=== PATIENT | female | born 1995 | race Hispanic/Latino ===

== ENCOUNTER 2020-06-07 15:37 | Emergency (ER) | payer MEDICAID ==
[2020-06-07] MEDS ORDERED: SODIUM CHLORIDE 0.9% 1000ML 1,000 ML IV ONE (17:03)
[2020-06-07] MEDS ORDERED: METHYLPREDNISOLONE SOD SUCC 125MG/2ML VIAL ONE (17:04)
[2020-06-07] MEDS ORDERED: ALBUTEROL INHALER 90MCG/INH IH ONE (17:04)
[2020-06-07] MEDS ORDERED: AZITHROMYCIN 500MG+NS 250ML 250 ML IV ONE (17:05)
[2020-06-07] MEDS ORDERED: KETOROLAC TROMETHAMINE 30MG/ML ONE (17:05)
[2020-06-07] MEDS ORDERED: CEFTRIAXONE SODIUM 1 GM ONE (17:05)
[2020-06-07 17:42] LABS: CREATININE 0.7 mg/dL (0.5-1.5); POTASSIUM 3.8 mmol/L (3.5-5.1)
[2020-06-07 17:46] LABS: ALBUMIN 3.6 g/dL (3.5-5.0); BILIRUBIN,TOTAL 0.8 mg/dL (0.2-1.0); TOTAL PROTEIN, SERUM 8.2 g/dL (6.0-8.3)
[2020-06-07 18:05] LABS: RAPID GROUP A STREP NEGATIVE (NEGATIVE)
[2020-06-07 18:12] LABS: BASOPHILS % (AUTO) 0.5 % (0.0-5.0); EOSINOPHILS % (AUTO) 10.4 % (0.0-8.0); HEMATOCRIT 40.8 % (36-48); MEAN CORPUSCULAR HEMOGLOBIN 27.9 pg (27.0-33.0); MEAN CORPUSCULAR HGB CONC 32.8 g/dL (32.0-36.0); MONOCYTES % (AUTO) 6.6 % (3.0-13.0); NEUTROPHILS % (AUTO) 52.4 % (40.0-77.0); PLATELET COUNT (AUTO) 229 K/uL (130-400); RED CELL DISTRIBUTION WIDTH 13.2 % (11.0-15.5); WHITE BLOOD COUNT (AUTO) 8.3 K/uL (4.8-10.8)
[2020-06-07 19:05] LABS: B-TYPE NATRIURETIC PEPTIDE 8 pg/mL (0-100)
[2020-06-07 20:03] LABS: APPEARANCE,URINE Cloudy (CLEAR); BILIRUBIN,URINE Negative (NEGATIVE); COLOR,URINE Yellow (YELLOW); GLUCOSE, URINE (UA) Negative (NEGATIVE); KETONES,URINE Negative (NEGATIVE); LEUKOCYTE ESTERASE ,URINE Trace (NEGATIVE); NITRATE,URINE Negative (NEGATIVE); OCCULT BLOOD,URINE Nonhemolyzed Trace (NEGATIVE); PROTEIN,URINE Negative (NEGATIVE); UROBILINOGEN,URINE 0.2 mg/dL (0.2-1.0)
[2020-06-07 20:05] LABS: HCG,QUAL RESULT NEGATIVE (NEGATIVE)
[2020-06-07 20:14] LABS: BACTERIA,URINE Few /HPF (None Seen); MUCUS,URINE Moderate LPF (None Seen); SQUAMOUS EPITHELIAL CELL,UR Moderate /HPF (0-2)
== END 2020-06-07 20:27 | disposition home or self-care (01) ==
LOC: EDH 15:37
DX: U07.1 COVID-19 (principal); J45.901 Unspecified asthma with (acute) exacerbation; F20.9 Schizophrenia, unspecified; Z72.0 Tobacco use
CPT/HCPCS: 36415; 71045; 80053; 81001; 81025; 83605; 83880; 84145; 85025; 87040 ×2; 87426; 87804 ×2; 87880; 93005; 96365; 96366; 96368; 96375; 99285; J0456; J0696; J1885; J2930; J7030

== ENCOUNTER 2020-07-19 07:22 | Observation (INO) | payer MEDICAID ==
[~2020-07-19] VITALS: Ht 162.6 cm; Wt 95.3 kg
[2020-07-19] MEDS ORDERED: ALBUTEROL INHALER 90MCG/INH IH ONE (08:04)
[2020-07-19] MEDS ORDERED: METHYLPREDNISOLONE SOD SUCC 125MG/2ML VIAL ONE (08:04)
[2020-07-19 08:10] LABS: BASOPHILS % (AUTO) 0.4 % (0.0-5.0); EOSINOPHILS % (AUTO) 10.2 % (0.0-8.0); HEMATOCRIT 42.4 % (36-48); LYMPHOCYTES % (AUTO) 19.5 % (21.0-51.0); MEAN CORPUSCULAR HEMOGLOBIN 28.5 pg (27.0-33.0); MONOCYTES % (AUTO) 5.4 % (3.0-13.0); NEUTROPHILS % (AUTO) 64.3 % (40.0-77.0); PLATELET COUNT (AUTO) 274 K/uL (130-400); RED BLOOD CELL COUNT(AUTO) 5.05 MIL/uL (4.00-5.50); RED CELL DISTRIBUTION WIDTH 13.7 % (11.0-15.5); WHITE BLOOD COUNT (AUTO) 12.1 K/uL (4.8-10.8)
[2020-07-19] MEDS ORDERED: MAGNESIUM 2GM PREMIX 50ML 50 ML IV ONE (08:10)
[2020-07-19 08:31] LABS: CREATININE 0.9 mg/dL (0.5-1.5); POTASSIUM 3.7 mmol/L (3.5-5.1)
[2020-07-19 08:32] LABS: B-TYPE NATRIURETIC PEPTIDE 6 pg/mL (0-100)
[2020-07-19] MEDS ORDERED: LACTULOSE 20 GM/30 ML UDCUP PO PRN (11:30)
[2020-07-19] MEDS: METHYLPREDNISOLONE SOD SUCC 125MG/2ML VIAL IV SCH ×2 (11:30→19:30)
[2020-07-19] MEDS ORDERED: ONDANSETRON HCL 4 MG/2 ML VIAL IV PRN (11:30)
[2020-07-19] MEDS ORDERED: IPRATROPIUM/ALBUTEROL SULFATE 3 ML SOLUTION IH PRN (11:30)
[2020-07-19] MEDS ORDERED: ACETAMINOPHEN 325 MG TAB PO PRN ×2 (11:30)
[2020-07-19] MEDS: ALBUTEROL INHALER 90MCG/INH IH SCH (18:00)
[2020-07-19] MEDS ORDERED: MAGNESIUM 2GM PREMIX 50ML 50 ML IV SCH ×2 (18:15)
[2020-07-19 19:27] VITALS: BP 143/75
[2020-07-19] MEDS: FAMOTIDINE 20MG TAB 20 MG TAB PO SCH (21:27)
[2020-07-19] MEDS ORDERED: BENZONATATE 100 MG CAPSULE PO ONE (22:12)
[2020-07-19] MEDS ORDERED: BENZONATATE 100 MG CAPSULE PO PRN (22:15)
[2020-07-19 23:19] VITALS: BP 114/70
[2020-07-19] MEDS ORDERED: PALI3TAB5 PO (23:45)
[2020-07-19] MEDS ORDERED: BENZTROPINE PO (23:45)
[2020-07-19] MEDS ORDERED: TRAZ-187 PO (23:45)
[2020-07-19] MEDS ORDERED: PARO7.5C2 PO (23:45)
[2020-07-20] MEDS: ALBUTEROL INHALER 90MCG/INH IH SCH ×3 (00:55→12:00)
[2020-07-20 03:06] VITALS: BP 106/52
[2020-07-20] MEDS: METHYLPREDNISOLONE SOD SUCC 125MG/2ML VIAL IV SCH ×2 (03:30→11:58)
[2020-07-20 04:34] LABS: BASOPHILS % (AUTO) 0.4 % (0.0-5.0); EOSINOPHILS % (AUTO) 1.5 % (0.0-8.0); HEMATOCRIT 40.3 % (36-48); LYMPHOCYTES % (AUTO) 21.9 % (21.0-51.0); MEAN CORPUSCULAR HGB CONC 33.3 g/dL (32.0-36.0); MEAN CORPUSCULAR VOLUME 84.3 fL (79-99); MONOCYTES % (AUTO) 9.3 % (3.0-13.0); NEUTROPHILS % (AUTO) 66.3 % (40.0-77.0); PLATELET COUNT (AUTO) 296 K/uL (130-400); RED BLOOD CELL COUNT(AUTO) 4.78 MIL/uL (4.00-5.50); RED CELL DISTRIBUTION WIDTH 13.6 % (11.0-15.5); WHITE BLOOD COUNT (AUTO) 15.2 K/uL (4.8-10.8)
[2020-07-20 04:54] LABS: CREATININE 0.8 mg/dL (0.5-1.5); POTASSIUM 3.7 mmol/L (3.5-5.1)
[2020-07-20 07:00] VITALS: BP 125/94
[2020-07-20] MEDS ORDERED: ENOXAPARIN SODIUM 40 MG/0.4 ML SYRINGE SQ SCH (09:00)
[2020-07-20] MEDS: FAMOTIDINE 20MG TAB 20 MG TAB PO SCH (09:34)
[2020-07-20 11:00] VITALS: BP 129/71
[2020-07-20] MEDS ORDERED: METH4TAB3 PO (14:40)
[2020-07-20] MEDS ORDERED: BENZ-39 PO (15:29)
[2020-07-20] MEDS ORDERED: PRED20TA3 PO (15:32)
[2020-07-20 16:00] VITALS: BP 124/70
[2020-07-21] MEDS ORDERED: PREDNISONE 20 MG TABLET PO SCH (09:00)
== END 2020-07-20 16:55 | disposition home or self-care (01) ==
LOC: EDH 07:22 → INTOOBSV 10:25 → EDHIP 10:25 → 4CH 18:32
PROVIDERS: ADMIT Family Medicine; ATTEND Family Medicine
DX: U07.1 COVID-19 (principal); J45.901 Unspecified asthma with (acute) exacerbation; F20.9 Schizophrenia, unspecified; F17.210 Nicotine dependence, cigarettes, uncomplicated; Z86.16 Personal history of COVID-19; Z79.899 Other long term (current) drug therapy
CPT/HCPCS: 36415 ×2; 71045; 80048 ×2; 82550; 83880; 84484; 85025 ×2; 87426; 93005 ×2; 94640; 96372; 96374; 96376; 99291; G0378 ×29; J1650; J2930 ×3; J3475; U0003; 94664

== ENCOUNTER 2020-10-21 05:56 | Emergency (ER) | payer MEDICAID ==
[~2020-10-21] VITALS: Ht 160 cm; Wt 93.9 kg
[~2020-10-21 05:56] MED LIST: BENZ-39 PO; BENZTROPINE PO; PALI3TAB5 PO; PARO7.5C2 PO; PRED20TA3 PO; TRAZ-187 PO
[2020-10-21 05:59] VITALS: BP 147/121
[2020-10-21 06:12] VITALS: BP 168/95
[2020-10-21] MEDS ORDERED: SOLU-MEDROL 125MG VIAL ONE (06:14)
[2020-10-21] MEDS ORDERED: IPRATROPIUM/ALBUTEROL SULFATE 3 ML SOLUTION IH ONE (06:17)
[2020-10-21 06:22] LABS: BASOPHILS % (AUTO) 0.5 % (0.0-5.0); EOSINOPHILS % (AUTO) 7.3 % (0.0-8.0); HEMATOCRIT 45.8 % (36-48); LYMPHOCYTES % (AUTO) 14.3 % (21.0-51.0); MEAN CORPUSCULAR HEMOGLOBIN 27.9 pg (27.0-33.0); MEAN CORPUSCULAR HGB CONC 32.5 g/dL (32.0-36.0); MEAN CORPUSCULAR VOLUME 85.6 fL (79-99); MONOCYTES % (AUTO) 6.6 % (3.0-13.0); NEUTROPHILS % (AUTO) 70.9 % (40.0-77.0); PLATELET COUNT (AUTO) 266 K/uL (130-400); RED BLOOD CELL COUNT(AUTO) 5.35 MIL/uL (4.00-5.50); RED CELL DISTRIBUTION WIDTH 13.9 % (11.0-15.5); WHITE BLOOD COUNT (AUTO) 20.1 K/uL (4.8-10.8)
[2020-10-21 06:33] LABS: ALBUMIN 3.9 g/dL (3.5-5.0); BILIRUBIN,TOTAL 1.1 mg/dL (0.2-1.0); CREATININE 0.7 mg/dL (0.5-1.5); POTASSIUM 3.6 mmol/L (3.5-5.1); TOTAL PROTEIN, SERUM 8.2 g/dL (6.0-8.3)
[2020-10-21] MEDS ORDERED: SOLU-MEDROL 125MG VIAL IVP SCH (07:01)
[2020-10-21] MEDS ORDERED: IPRATROPIUM/ALBUTEROL SULFATE 3 ML SOLUTION IH SCH ×2 (07:01→07:30)
[2020-10-21] MEDS ORDERED: 0.9%NACL 1000ML 1,000 ML IV SCH (07:02)
[2020-10-21 07:18] VITALS: BP 148/81
[2020-10-21] MEDS ORDERED: AZIT500T4 PO (07:32)
[2020-10-21] MEDS ORDERED: PRED20TA3 PO (07:32)
[2020-10-21 08:15] VITALS: BP 134/78
== END 2020-10-21 08:16 | disposition home or self-care (01) ==
LOC: EDH 05:56
DX: J45.901 Unspecified asthma with (acute) exacerbation (principal); Z20.822 Contact with and (suspected) exposure to COVID-19; Z79.899 Other long term (current) drug therapy
CPT/HCPCS: 36415; 71045; 80053; 84484; 85025; 87635; 87804 ×2; 93005; 94640 ×2; 96361; 96374; 99285; C9803; J2930; J7030

== ENCOUNTER 2020-12-01 22:47 | Emergency (ER) | payer MEDICAID ==
[~2020-12-01] VITALS: Ht 162.6 cm; Wt 97.5 kg
[~2020-12-01 22:47] MED LIST changes: +AZIT500T4 PO
[2020-12-01 23:13] VITALS: BP 123/82
[2020-12-01 23:27] VITALS: BP 123/82
[2020-12-01 23:29] LABS: BASOPHILS % (AUTO) 0.5 % (0.0-5.0); EOSINOPHILS % (AUTO) 3.9 % (0.0-8.0); HEMATOCRIT 43.8 % (36-48); MEAN CORPUSCULAR HEMOGLOBIN 27.7 pg (27.0-33.0); MEAN CORPUSCULAR HGB CONC 32.9 g/dL (32.0-36.0); MEAN CORPUSCULAR VOLUME 84.4 fL (79-99); MONOCYTES % (AUTO) 5.8 % (3.0-13.0); NEUTROPHILS % (AUTO) 74.3 % (40.0-77.0); PLATELET COUNT (AUTO) 288 K/uL (130-400); RED BLOOD CELL COUNT(AUTO) 5.19 MIL/uL (4.00-5.50); RED CELL DISTRIBUTION WIDTH 14.3 % (11.0-15.5)
[2020-12-01 23:40] LABS: CREATININE 0.8 mg/dL (0.5-1.5); POTASSIUM 3.4 mmol/L (3.5-5.1)
[2020-12-01 23:45] LABS: ALBUMIN 3.8 g/dL (3.5-5.0); BILIRUBIN,TOTAL 0.9 mg/dL (0.2-1.0)
[2020-12-02] MEDS ORDERED: ONDANSETRON ODT 4MG TAB SL ONE (01:00)
[2020-12-02] MEDS ORDERED: FAMOTIDINE 20MG TAB PO ONE (01:00)
[2020-12-02 02:13] LABS: APPEARANCE,URINE Clear (CLEAR); BILIRUBIN,URINE Negative (NEGATIVE); COLOR,URINE Yellow (YELLOW); GLUCOSE, URINE (UA) Negative (NEGATIVE); KETONES,URINE Negative (NEGATIVE); LEUKOCYTE ESTERASE ,URINE Negative (NEGATIVE); NITRATE,URINE Negative (NEGATIVE); OCCULT BLOOD,URINE Negative (NEGATIVE); PROTEIN,URINE Negative (NEGATIVE); UROBILINOGEN,URINE 0.2 mg/dL (0.2-1.0)
[2020-12-02] MEDS ORDERED: OMEP20TA25 PO (02:32)
[2020-12-02] MEDS ORDERED: FAMO-136 PO (02:32)
[2020-12-02] MEDS ORDERED: LACT1CAP65 PO (02:32)
[2020-12-02] MEDS ORDERED: IBUP-1493 PO (02:32)
[2020-12-02 02:41] VITALS: BP 118/78
== END 2020-12-02 02:42 | disposition home or self-care (01) ==
LOC: EDH 22:47
DX: A08.4 Viral intestinal infection, unspecified (principal); J45.909 Unspecified asthma, uncomplicated; Z20.822 Contact with and (suspected) exposure to COVID-19; Z79.899 Other long term (current) drug therapy; Z79.52 Long term (current) use of systemic steroids
CPT/HCPCS: 36415; 80053; 81003; 81025; 85025; 87426

== ENCOUNTER 2021-02-19 07:28 | Emergency (ER) | payer MEDICAID, OTHER ==
[~2021-02-19] VITALS: Ht 162.6 cm; Wt 93.0 kg
[~2021-02-19 07:28] MED LIST changes: +ALBU8.5H8 IH; -AZIT500T4 PO; -BENZ-39 PO; +BENZ1TAB10 PO; -BENZTROPINE PO; +BUDE180H IH; +DOXY100C5 PO; +FAMO-136 PO; +IBUP-1493 PO; +IPRA4AER IH; +LACT1CAP65 PO; +MONT-39 PO; -PALI3TAB5 PO; +PARO40TA72 PO; -PARO7.5C2 PO; -PRED20TA3 PO; -TRAZ-187 PO
[2021-02-19 08:00] LABS: BASOPHILS % (AUTO) 0.6 % (0.0-5.0); EOSINOPHILS % (AUTO) 0.6 % (0.0-8.0); HEMATOCRIT 43.8 % (36-48); LYMPHOCYTES % (AUTO) 10.1 % (21.0-51.0); MEAN CORPUSCULAR HEMOGLOBIN 27.7 pg (27.0-33.0); MEAN CORPUSCULAR HGB CONC 32.9 g/dL (32.0-36.0); MEAN CORPUSCULAR VOLUME 84.2 fL (79-99); MONOCYTES % (AUTO) 4.4 % (3.0-13.0); NEUTROPHILS % (AUTO) 83.7 % (40.0-77.0); PLATELET COUNT (AUTO) 316 K/uL (130-400); RED CELL DISTRIBUTION WIDTH 12.6 % (11.0-15.5); WHITE BLOOD COUNT (AUTO) 18.7 K/uL (4.8-10.8)
[2021-02-19] MEDS ORDERED: MAG/ALUM/SIMETH 30 ML UDCUP PO ONE (08:00)
[2021-02-19] MEDS ORDERED: LIDOCAINE HCL 2% VISCOUS 15 ML UDCUP PO ONE (08:00)
[2021-02-19] MEDS ORDERED: ONDANSETRON 4MG INJ IVP ONE (08:00)
[2021-02-19] MEDS ORDERED: FAMOTIDINE 20MG TAB PO ONE (08:00)
[2021-02-19 08:01] LABS: APPEARANCE,URINE CLOUDY (CLEAR); BILIRUBIN,URINE NEGATIVE (NEGATIVE); COLOR,URINE YELLOW (YELLOW); GLUCOSE, URINE (UA) NEGATIVE (NEGATIVE); KETONES,URINE NEGATIVE (NEGATIVE); LEUKOCYTE ESTERASE ,URINE NEGATIVE (NEGATIVE); NITRATE,URINE NEGATIVE (NEGATIVE); OCCULT BLOOD,URINE NEGATIVE (NEGATIVE); PH,URINE 8.5 (5.0-8.0); PROTEIN,URINE NEGATIVE (NEGATIVE); UROBILINOGEN,URINE 0.2 mg/dL (0.2-1.0)
[2021-02-19 08:04] LABS: HCG,QUAL RESULT NEGATIVE (NEGATIVE)
[2021-02-19 08:14] LABS: ALBUMIN 3.8 g/dL (3.5-5.0); BILIRUBIN,TOTAL 0.5 mg/dL (0.2-1.0); CREATININE 0.6 mg/dL (0.5-1.5); POTASSIUM 3.8 mmol/L (3.5-5.1); TOTAL PROTEIN, SERUM 8.1 g/dL (6.0-8.3)
[2021-02-19 08:18] LABS: BACTERIA,URINE None Seen /HPF (None Seen); RBC,URINE None Seen /HPF (0-1); WBC,URINE None Seen /HPF (0-1)
[2021-02-19 08:19] LABS: AMORPHOUS SEDIMENT,UR Moderate /LPF (None Seen)
[2021-02-19] MEDS ORDERED: KETOROLAC 15MG/ML VIAL (15MG/ML) IV ONE (08:30)
[2021-02-19] MEDS ORDERED: 0.9%NACL 1000ML 1,000 ML IV ONE (08:30)
[2021-02-19] MEDS ORDERED: MAG-55 PO (09:19)
[2021-02-19] MEDS ORDERED: ESOM20CA31 PO (09:19)
[2021-02-19 10:47] VITALS: BP 123/72
== END 2021-02-19 10:45 | disposition home or self-care (01) ==
LOC: EDH 07:28
DX: K29.70 Gastritis, unspecified, without bleeding (principal); F20.9 Schizophrenia, unspecified; Z79.1 Long term (current) use of non-steroidal anti-inflammatories (NSAID); Z79.51 Long term (current) use of inhaled steroids; Z79.899 Other long term (current) drug therapy
CPT/HCPCS: 36415; 80053; 81001; 81025; 82150; 83690; 85025; 96361; 96374; 96375; 99284; J2405

== ENCOUNTER 2021-10-23 06:06 | Emergency (ER) | payer OTHER ==
[~2021-10-23] VITALS: Ht 152.4 cm; Wt 88.5 kg
[~2021-10-23 06:06] MED LIST changes: +ALBU18HF7 IH; -ALBU8.5H8 IH; -BENZ1TAB10 PO; +BUDE0.5A8 IH; -BUDE180H IH; +CETI10TA57 PO; -DOXY100C5 PO; -FAMO-136 PO; +FLUT1BLS IH; -IBUP-1493 PO; +INHA1EAC51 MC; +IPRA3AMP24 IH; -IPRA4AER IH; -LACT1CAP65 PO; -PARO40TA72 PO; +PRED20TA3 PO
[2021-10-23] MEDS ORDERED: IPRATROPIUM/ALBUTEROL SULFATE 3 ML SOLUTION IH ONE (07:30)
[2021-10-23] MEDS ORDERED: ALBUTEROL 0.083% 2.5 MG/3 ML INH IH ONE ×2 (08:00)
[2021-10-23] MEDS ORDERED: SOLU-MEDROL 125MG VIAL IVP ONE (09:00)
[2021-10-23] MEDS ORDERED: ALBU18HF7 IH (10:07)
[2021-10-23] MEDS ORDERED: PRED5TAB PO (10:07)
[2021-10-23] MEDS ORDERED: MONT-39 PO (10:07)
[2021-10-23 10:24] VITALS: BP 129/86
== END 2021-10-23 10:10 | disposition home or self-care (01) ==
LOC: EDH 06:06
DX: J45.901 Unspecified asthma with (acute) exacerbation (principal); Z20.822 Contact with and (suspected) exposure to COVID-19; F20.9 Schizophrenia, unspecified; Z79.51 Long term (current) use of inhaled steroids; Z79.52 Long term (current) use of systemic steroids
CPT/HCPCS: 81025; 87635; 87804 ×2; 94640 ×3; 96374; 99285; C9803; J2930